=== PATIENT | male | born 1960 | race Caucasian/White ===

== ENCOUNTER 2019-01-15 17:28 | Emergency (ER) | payer OTHER, MEDICAID ==
[~2019-01-15] VITALS: Ht 172.7 cm; Wt 77.1 kg
[2019-01-15 17:32] VITALS: BP 122/76
--- NOTE | 2019-01-15 17:50 | NUR ---
PATIENT AMBULATED TO ER BED 9.
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
--- NOTE | 2019-01-15 18:00 | NUR ---
PATIENT RESTING AT THIS TIME. NO SIGNS OF DISTRESS.
[2019-01-15] MEDS ORDERED: NACL 0.9% 1,000 ML IV SCH (18:28)
--- NOTE | 2019-01-15 19:10 | NUR ---
Pt report given to MAYKEL PEARSON. Transfer of care at this time.
[2019-01-15 19:28] LABS: BASOPHILS # (AUTO) 0.1 K/uL (0.00-0.22); BASOPHILS % (AUTO) 1.1 % (0.0-2.0); EOSINOPHILS % (AUTO) 0.6 % (0.0-4.0); HEMATOCRIT 47.1 % (36-52); HEMOGLOBIN 15.8 g/dL (12.0-18.0); LYMPHOCYTES # (AUTO) 1.7 K/uL (2.0-11.5); LYMPHOCYTES % (AUTO) 26.4 % (20.5-51.1); MEAN CORPUSCULAR HEMOGLOBIN 30 pg (27-31); MEAN CORPUSCULAR HGB CONC 34 g/dL (33-37); MEAN CORPUSCULAR VOLUME 89.5 fL (80-94); MONOCYTES # (AUTO) 0.3 K/uL (0.8-1.0); MONOCYTES % (AUTO) 5.1 % (1.7-9.3); NEUTROPHILS # (AUTO) 4.2 K/uL (1.8-7.7); NEUTROPHILS % (AUTO) 66.8 % (42.2-75.2); PLATELET COUNT (AUTO) 121 K/uL (140-450); RED BLOOD CELL COUNT(AUTO) 5.26 MIL/uL (4.20-6.10); RED CELL DISTRIBUTION WIDTH 14.8 % (11.6-13.7); WHITE BLOOD COUNT (AUTO) 6.3 K/uL (4.8-10.8)
[2019-01-15 19:39] LABS: ALBUMIN 3.7 g/dL (3.4-5.0); ANION GAP 16.8 (8-16); CARBON DIOXIDE 26.5 mmol/L (21-32); CREATININE 0.7 mg/dL (0.7-1.3); POTASSIUM 3.3 mmol/L (3.5-5.1); TOTAL BILIRUBIN 0.8 mg/dL (0.0-1.0)
[2019-01-15] MEDS ORDERED: NACL 0.9% 1,000 ML IV ONE (20:20)
[2019-01-15] MEDS ORDERED: KETOROLAC 30 MG/ML VIAL IVP ONE (20:35)
[2019-01-15 21:45] VITALS: BP 124/70
--- NOTE | 2019-01-15 21:45 | NUR ---
Patient discharged with v/s stable. Written and verbal after care instructions given and explained. Patient verbalized understanding. Ambulatory with steady gait. All questions addressed prior to discharge. Advised to follow up with PMD.
== END 2019-01-15 21:45 | disposition home or self-care (01) ==
LOC: MED 17:28
DX: F10.129 Alcohol abuse with intoxication, unspecified (principal); E11.9 Type 2 diabetes mellitus without complications; J45.909 Unspecified asthma, uncomplicated; K21.9 Gastro-esophageal reflux disease without esophagitis; I10 Essential (primary) hypertension; F17.210 Nicotine dependence, cigarettes, uncomplicated; Z88.6 Allergy status to analgesic agent; Z88.0 Allergy status to penicillin; Z88.8 Allergy status to other drugs, medicaments and biological substances; Y90.7 Blood alcohol level of 200-239 mg/100 ml
CPT/HCPCS: 36415; 80053; 84484; 85025; 93005; 96361; 96374; 99284; G0482; J1885; J7030

== ENCOUNTER 2019-03-21 13:25 | Emergency (ER) | payer OTHER, MEDICAID ==
[~2019-03-21] VITALS: Ht 172.7 cm; Wt 77.1 kg
[2019-03-21 13:25] VITALS: BP 180/110
--- NOTE | 2019-03-21 13:25 | NUR ---
PATIENT AMBULATED WITH [employer] [employer] TO CHAIR E.
--- NOTE | 2019-03-21 13:35 | NUR ---
PT IS A 58 Y/O MALE BIB [place] [employer] FOR PREBOOK. PT HAS A WARRANT. PT DENIES PAIN AT THIS TIME. PT DENIES CP, SOB, N/V/D. PT AWAKE AND ALERT, RR EVEN/UNLABORED. PT REPOSITIONED FOR COMFORT, [place] [employer] SITTING NEAR PATIENT. ER MD NOTIFIED. WILL CONTINUE TO MONITOR. PMH--DM (188), SZ, HTN, PSIORIASIS, NEUROPATHY, PREV SHOULDER DISPLACEMENT ALLERGIES--PCN, DILANTIN, ASPIRIN, PEANUT BUTTER
[2019-03-21] MEDS ORDERED: metFORMIN 500 MG TAB PO STA (14:06)
[2019-03-21] MEDS ORDERED: cloNIDine 0.1 MG TAB PO ONE (14:10)
[2019-03-21] MEDS ORDERED: LORazepam 0.5 MG TAB PO ONE (14:10)
--- NOTE | 2019-03-21 14:10 | NUR ---
PATIENT TAKEN TO XRAY VIA WHEELCHAIR WITH TECH.
--- NOTE | 2019-03-21 14:20 | NUR ---
PATIENT RETURN FROM XRAY.
[2019-03-21] MEDS ORDERED: metFORMIN 500 MG TAB PO SCH (14:26)
--- NOTE | 2019-03-21 14:39 | NUR ---
PATIENT SITTING IN CHAIR AT THIS TIME.
[2019-03-21 15:33] VITALS: BP 167/85
--- NOTE | 2019-03-21 15:33 | NUR ---
Patient discharged with v/s stable. Written and verbal after care instructions given and explained. Patient alert, oriented and verbalized understanding of instructions. Ambulatory with steady gait. All questions addressed prior to discharge. ID band removed. Patient advised to follow up with PMD. Rx of METFORMIN, CLONIDINE AND ATIVAN given. Patient educated on indication of medication including possible reaction and side effects. Opportunity to ask questions provided and answered.
== END 2019-03-21 15:33 ==
LOC: MED 13:25
DX: E11.9 Type 2 diabetes mellitus without complications (principal); M25.512 Pain in left shoulder; J45.909 Unspecified asthma, uncomplicated; K21.9 Gastro-esophageal reflux disease without esophagitis; I10 Essential (primary) hypertension; Z02.89 Encounter for other administrative examinations; Z88.6 Allergy status to analgesic agent; Z88.0 Allergy status to penicillin; Z88.8 Allergy status to other drugs, medicaments and biological substances
CPT/HCPCS: 73030; 93005; 99284; Q0092

== ENCOUNTER 2019-09-14 13:14 | Emergency (ER) | payer OTHER, MEDICAID ==
[~2019-09-14] VITALS: Ht 172.7 cm; Wt 74.8 kg
[2019-09-14 13:20] VITALS: BP 142/102
[2019-09-14] MEDS ORDERED: LORazepam 2 MG/ML VIAL IVP ONE (13:35)
[2019-09-14] MEDS ORDERED: NACL 0.9% 1,000 ML IV ONE (13:35)
[2019-09-14] MEDS ORDERED: ALBUTEROL 0.083% 2.5 MG/3 ML NEBU INH ONE (13:35)
[2019-09-14 15:20] VITALS: BP 138/88
== END 2019-09-14 15:18 | disposition home or self-care (01) ==
LOC: MERGE 13:14 → MED 13:14
DX: R56.9 Unspecified convulsions (principal); R51 Headache; J44.9 Chronic obstructive pulmonary disease, unspecified; E11.9 Type 2 diabetes mellitus without complications; I10 Essential (primary) hypertension; F17.210 Nicotine dependence, cigarettes, uncomplicated; Z88.0 Allergy status to penicillin; Z88.8 Allergy status to other drugs, medicaments and biological substances; Z02.89 Encounter for other administrative examinations
CPT/HCPCS: 70450; 71045; 94640; 96374; 99284; J2060; J7613; Q0092; J7030